=== PATIENT | female | born 1980 | race Caucasian/White ===

== ENCOUNTER → 2017-02-12 | Outpatient (CLI) | payer OTHER ==
[~2017-02-12] MED LIST: IOPAMIDOL (ISOVUE 370) 100 ML BTL IV ONE
== END ==
LOC: FIMAGING 10:34
PROVIDERS: ATTEND Psychiatry & Neurology Neurology
DX: G43.909 Migraine, unspecified, not intractable, without status migrainosus (principal); H02.402 Unspecified ptosis of left eyelid; R29.818 Other symptoms and signs involving the nervous system
CPT/HCPCS: Q9967

== ENCOUNTER → 2018-01-18 | Outpatient (CLI) | payer OTHER | LOC: FIMAGING 12:39 | DX: N63.21 Unspecified lump in the left breast, upper outer quadrant (principal); N63.11 Unspecified lump in the right breast, upper outer quadrant ==